=== PATIENT | female | born 1995 ===

== ENCOUNTER 2021-03-06 13:44 | Outpatient (CLI) | payer OTHER ==
[~2021-03-06 13:44] MED LIST: ABILIFY5 MG; AMBIEN CR12.5 MG/BL; CLONAZEPAM0.5 MG; LAMICTAL100 M1; PNEU16DI2; WELLBUTRIN SR100 MG
== END 2021-03-06 13:52 | disposition home or self-care (01) ==
LOC: TOM 13:44
PROVIDERS: ATTEND General Practice
DX: G44.001 Cluster headache syndrome, unspecified, intractable (principal)